=== PATIENT | female | born 1995 | race Caucasian/White ===

== ENCOUNTER 2019-04-29 09:14 | Emergency (ER) | payer OTHER, SELFPAY ==
[2019-04-29 09:17] VITALS: BP 138/70; PULSE 80; RESP 14; TEMP 36.7; O2SAT 99
--- NOTE | 2019-04-29 10:45 | ED_ITS ---
HPI - Eye Problem General Chief complaint: Eye Problems Stated complaint: Swollen left eye Time Seen by Provider: 04/29/19 10:28 Source: patient Mode of arrival: ambulatory Limitations: no limitations History of Present Illness HPI Narrative: 24-year-old female comes emergency department with complaint of swelling and pain in her left eye 1st 3, patient states on the lower lid, she has had swelling. It is uncomfortable. She has not had any fevers. She denies any pain in her eye itself she denies any vision changes. She states she does normally wear contacts, she is wearing glasses today. She has had similar symptoms in the past but states that this is a different location. Patient has no other medical issues. Denies any prior surgeries. 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 Related Data Previous Rx's Medication Instructions Recorded ofloxacin 1 drop EYE-LEFT QID #5 ml 04/29/19 Allergies Allergy/AdvReac Type Severity Reaction Status Date / Time No Known Drug Allergies Allergy Verified 04/29/19 09:27 Review of Systems Review of Systems ROS Unobtainable: All systems reviewed & are unremarkable except as noted in HPI and below Eyes Reports system reviewed and no additional complaints, except as docu, Denies change in vision, Reports eye discharge (crusties), Reports irritation, Denies loss of peripheral vision, Denies eye pain, Reports requires corrective lenses and Reports other (bump on lower eyelid) PFSH Social History Smoking Status: Never smoker Social History Smoking Status: Never smoker Exam Narrative Exam Narrative: GEN: well nourished, well appearing female, alert and oriented x 3, patient appears to be in mild distress. HEENT: Atraumatic, pupils are equal round reactive to light, extraocular movements are intact, nares are clear Visual acuity: right 20/40, left 20/50 without correction. General: no globe trauma Eyelids: normal inspection, eyelids everted for exam on left. Patient has a small papular bumps, there does not appear to be any fluctuance for point whiteness. There is some slight erythema and conjunctival injection. It is in the left lateral lower lid close to the corner. Conjunctiva/Sclera: normal inspection Corneas: normal inspection. EOM: intact, no palsy/entrapment Pupils: PERRL, normal accomadation, pupil normal Anterior Chambers: normal inspection, no hypema HEART: Regular rate and rhythm without murmur, clicks, rubs. LUNGS:Lungs clear to auscultation, no wheezes, rales, crackles, chest moves symmetrically ABD:bowel sounds normal, soft, non-tender, no guarding, rebound, rigidity, no masses noted, no hepatosplenomegaly MSCL: Non-tender, no muscle atrophy, muscles strength 5/5 upper and lower extremities, full range of motion, normal gait NEURO:CN 2-12 intact, sensation normal Initial Vital Signs Initial Vital Signs: Vital Signs Temperature 98.1 F 04/29/19 09:17 Pulse Rate 80 04/29/19 09:17 Respiratory Rate 14 04/29/19 09:17 Blood Pressure 138/70 04/29/19 09:17 Pulse Oximetry 99 04/29/19 09:17 Course Vital Signs - 8 hr 04/29/19 09:17 Temperature 98.1 F Pulse Rate 80 Respiratory Rate 14 Blood Pressure 138/70 Pulse Oximetry 99 Discharge Plan Departure Patient Disposition: Home Clinical Impression: Acute chalazion Qualifiers: Laterality: left Qualified Code(s): H00.16 - Chalazion left eye, unspecified eyelid Discharge Date/Time: 04/29/19 10:58 Interventions: ED Discharge Assessment Last Done: 04/29/19 10:57 Instructions: DI for Chalazion Activity Restrictions/Additional Instructions: Follow-up with Ophthalmology on Wednesday, call 1st thing on Wednesday morning for an appointment. Do not wear your contacts until you are cleared by Ophthalmology. Continue with cold compresses to the affected as often as you like. May continue with ibuprofen up to 600 mg every 6 hours and/or Tylenol up to a 1000 mg every 8 hours. Use antibiotic eyedrops twice daily until you see Ophthalmology. Return to the emergency department for fevers greater 100.4, rapidly increasing swelling of her eye, pain in the eyeball, vision changes, swelling of the face or other new or concerning symptoms Prescriptions: New ofloxacin 0.3 % drops 1 drop EYE-LEFT QID Qty: 5 RF: 0 Referrals: Armaan Hobson MD [Physician] -
[2019-04-29 10:57] VITALS: BP 122/71; PULSE 72; RESP 18; O2SAT 98
== END 2019-04-29 10:58 | disposition home or self-care (01) ==
PROVIDERS: Emergency Provider Emergency Medicine
DX: H00.16 Chalazion left eye, unspecified eyelid (principal)
CPT/HCPCS: 99283

== ENCOUNTER 2019-09-04 21:14 | Emergency (ER) | payer OTHER, SELFPAY ==
[2019-09-04 21:43] VITALS: BP 119/75; PULSE 87; RESP 20; TEMP 36.9; O2SAT 97
[2019-09-04 22:02] LABS: Add Manual Diff / Slide Review NO; Basophils Absolute Auto 0 /uL (0-100); Basophils Percent Auto 0.3 % (0-2); Eosinophils Absolute Auto 100 /uL (0-450); Eosinophils Percent Auto 0.8 % (2-4); Hematocrit 32.2 % (36-46); Hemoglobin 10.3 g/dL (12.0-16.0); Lymphocytes Absolute Auto 2700 /uL (1100-4500); Lymphocytes Percent Auto 31.6 % (25-40); Mean Corpuscular Hemoglobin 22.4 PG (26-34); Monocytes Absolute Auto 600 /uL (0-900); Neutrophils Absolute Auto 5100 /uL (1500-7000); Neutrophils Percent Auto 60.3 % (50-75); Platelet Count 293 X10^3/uL (150-400); Red Cell Distribution Width 16.5 % (11.6-14.8); White Blood Cell Count 8.4 X10^3/uL (4.5-11.0)
[2019-09-04] MEDS: SODIUM CHLORIDE 0.9% 1,000 ML 1000 ML IV (22:11)
[2019-09-04 22:12] LABS: Alanine Aminotransferase 11 IU/L (<35); Albumin 4.9 g/dL (3.5-5.0); Albumin Globulin Ratio 1.6 (1.0-2.8); Alkaline Phosphatase 46 U/L (38-126); Aspartate Aminotransferase 22 IU/L (14-36); BUN Creatinine Ratio 13.3 (6-22); Bilirubin Total 0.5 mg/dL (0.2-1.3); Blood Urea Nitrogen 8 mg/dL (7-17); Calcium 9.5 mg/dL (8.4-10.2); Carbon Dioxide 23 mmol/L (22-32); Chloride 103 mmol/L (98-107); Estimated Glomerular Filt Rate > 60.0 mL/min (>60); Glucose 93 mg/dL (70-100); HEMOLYSIS < 15 (0-50); Potassium 3.8 mmol/L (3.4-5.1); Sodium 137 mmol/L (137-145); Total Protein 7.9 g/dL (6.3-8.2)
[2019-09-04 22:16] LABS: Bacteria Urine None Seen; RBC Urine None Seen (0-5/HPF); WBC Urine None Seen (0-5/HPF)
[2019-09-04 22:36] LABS: Culture Indicated Urine Specimen Cultured; Squamous Epithelial Cell Urine 0-1 /HPF (0-5/HPF)
--- NOTE | 2019-09-04 22:57 | ED.NAVMDI ---
HPI - Nausea/Vomiting/Diarrhea General Chief complaint: Nausea/Vomiting/Diarrhea Stated complaint: 6 WKS VOMITING DIARRHEA Time Seen by Provider: 09/04/19 22:57 Source: patient Mode of arrival: Ambulatory Limitations: no limitations History of Present Illness HPI Narrative: This is a 24-year-old female comes to the emergency department with complaint of abdominal pain and nausea/vomiting and diarrhea for the past 4 5 days. Patient states most she has been having dry heaving. She has not been actually vomiting up food. But she has not been trying to eat or drink much. She states she has been having diarrhea about 4 times daily. There has been no black or blood. She describes her pain is sore lower abdomen. A constant sort of sharp pain. She states it does not radiate to her back. She denies any flank pain. She denies any vaginal bleeding. She has had vaginal discharge but states it is her typical vaginal discharge was no new changes. She had her 1st appointment today, she was evaluated and states they did not do a pelvic. She was scheduled for an only ultrasound but had not obtained yet. She has not any fevers or chills. No chest pain or shortness of breath. No nausea vomiting or cold cough congestive symptoms. They did all have a cold in her household about a week ago with a cough but that had resolved. She did have urinary symptoms about 5 days ago with frequency dysuria urgency but took cranberry tablets and states that her symptoms improved. Related Data Previous Rx's Medication Instructions Recorded ofloxacin 1 drop EYE-LEFT QID #5 ml 04/29/19 cephalexin [Keflex] 500 mg PO BID #10 cap 09/05/19 Allergies Allergy/AdvReac Type Severity Reaction Status Date / Time No Known Drug Allergies Allergy Verified 04/29/19 09:27 Review of Systems Review of Systems ROS Unobtainable: All systems reviewed & are unremarkable except as noted in HPI and below Patient History Social History Smoking Status: Never smoker alcohol intake frequency: 0-2 drinks per day Substance Use Type: does not use Exam Narrative Exam Narrative: GENERAL: Alert and oriented x three, well-nourished, well-appearing female in mild distress. HEENT: Head normocephalic, atraumatic, EOMI, pupils reactive, face symmetric, moist mucous membranes NECK: Supple, full range of motion CARDIOVASCULAR: Regular rate and rhythm without murmurs, rubs or gallops. RESPIRATORY: Breath sounds equal bilaterally, no wheezes rales or rhonchi. ABDOMEN: Soft, nontender to palpation. Unable to palpate uterus, appropriate for dates. Normoactive bowel sounds all 4 quadrants. No guarding or rebound, rigidity, no mass : No CVA tenderness EXTREMITIES: Normal range of motion, no clubbing or edema. Neurovascularly intact NEUROLOGICAL: Cranial nerves II through XII grossly intact. Moving all extremities SKIN: Warm, dry, no petechiae, no rashes or lesions. Initial Vital Signs Initial Vital Signs: Vital Signs Temperature 98.4 F 09/04/19 21:43 Pulse Rate 87 09/04/19 21:43 Respiratory Rate 20 09/04/19 21:43 Blood Pressure 119/75 09/04/19 21:43 Pulse Oximetry 97 09/04/19 21:43 Course Orders Ordered: ED Orders 09/04/19 21:50 Complete Blood Count AUTO DIFF Stat Comprehensive Metabolic Panel Stat 09/04/19 21:53 Lipase Stat 09/04/19 22:00 Urine Culture Stat Urine Microscopic Stat 09/04/19 23:12 US OB <= 14 weeks fetus Stat US abdomen complete Stat Discontinued Medications Acetaminophen (Tylenol) 975 mg PO NOW ONE Stop: 09/04/19 23:14 Last Admin: 09/04/19 23:28 Dose: 975 mg Documented by: MARIA ALEJANDRA Cephalexin HCl (Keflex) 500 mg PO NOW ONE Stop: 09/05/19 00:46 Last Admin: 09/05/19 00:59 Dose: 500 mg Documented by: MARIA ALEJANDRA Dicyclomine HCl (Bentyl) 20 mg PO NOW ONE Stop: 09/04/19 23:14 Last Admin: 09/04/19 23:28 Dose: 20 mg Documented by: MARIA ALEJANDRA Sodium Chloride (Normal Saline 0.9%) 1,000 mls @ 1,000 mls/hr IV BOLUS ONE Stop: 09/04/19 22:29 Last Infusion: 09/04/19 23:15 Dose: 0 mls/hr Documented by: MARIA ALEJANDRA Admin: 09/04/19 22:11 Dose: 1,000 mls/hr Documented by: MARIA AELJANDRA Ondansetron HCl (Zofran) 4 mg IV NOW ONE Stop: 09/04/19 21:30 Last Admin: 09/05/19 00:21 Dose: 4 mg Documented by: CROW Ondansetron HCl (Zofran Odt Prepack) 1 bottle MISC SEEINSTR ONE Stop: 09/05/19 00:55 Last Admin: 09/05/19 00:59 Dose: 1 bottle Documented by: MARIA ALEJANDRA Vital Signs Vital signs: Vital Signs - 8 hr 09/04/19 21:43 09/05/19 00:13 Temperature 98.4 F Pulse Rate 87 82 Respiratory Rate 20 15 Blood Pressure [Right Arm] 119/75 101/57 L Pulse Oximetry 97 99 MDM - Nausea/Vomiting/Diarrhea Lab Data Attestation: I reviewed the patient's lab results. Result diagrams: 09/04/19 21:50 09/04/19 21:50 Labs: Lab Results 09/04/19 09/04/19 09/04/19 Range/Units 21:50 21:50 21:53 WBC 8.4 (4.5-11.0) X10^3/uL RBC 4.60 (4.0-5.2) X10^6/uL Hgb 10.3 L (12.0-16.0) g/dL Hct 32.2 L (36-46) % MCV 70.0 L (80-100) fL MCH 22.4 L (26-34) PG MCHC 32.0 (30-36) % RDW 16.5 H (11.6-14.8) % Plt Count 293 (150-400) X10^3/uL Neut % (Auto) 60.3 (50-75) % Lymph % (Auto) 31.6 (25-40) % [place] % (Auto) 7.0 (3-14) % Eos % (Auto) 0.8 L (2-4) % Baso % (Auto) 0.3 (0-2) % Neut # (Auto) 5100 (4369-3500) /uL Lymph # (Auto) 2700 (8462-8867) /uL [place] # (Auto) 600 (0-900) /uL Eos # (Auto) 100 (0-450) /uL Baso # (Auto) 0 (0-100) /uL Sodium 137 (137-145) mmol/L Potassium 3.8 (3.4-5.1) mmol/L Chloride 103 (98-107) mmol/L Carbon Dioxide 23 (22-32) mmol/L BUN 8 (7-17) mg/dL Creatinine 0.60 (0.52-1.04) mg/dL Estimated GFR > 60.0 (>60) mL/min BUN/Creatinine Ratio 13.3 (6-22) Glucose 93 (70-100) mg/dL Calcium 9.5 (8.4-10.2) mg/dL Total Bilirubin 0.5 (0.2-1.3) mg/dL AST 22 (14-36) IU/L ALT 11 (<35) IU/L Alkaline Phosphatase 46 (38-126) U/L Total Protein 7.9 (6.3-8.2) g/dL Albumin 4.9 (3.5-5.0) g/dL Globulin 3.0 (1.7-4.1) g/dL Albumin/Globulin Ratio 1.6 (1.0-2.8) Lipase 97 (23-300) U/L Urine RBC (0-5/HPF) Urine WBC (0-5/HPF) Ur Squamous Epith Cells (0-5/HPF) Urine Bacteria (None) Ur Culture Indicated? 09/04/19 Range/Units 22:00 WBC (4.5-11.0) X10^3/uL RBC (4.0-5.2) X10^6/uL Hgb (12.0-16.0) g/dL Hct (36-46) % MCV (80-100) fL MCH (26-34) PG MCHC (30-36) % RDW (11.6-14.8) % Plt Count (150-400) X10^3/uL Neut % (Auto) (50-75) % Lymph % (Auto) (25-40) % [place] % (Auto) (3-14) % Eos % (Auto) (2-4) % Baso % (Auto) (0-2) % Neut # (Auto) (4233-8707) /uL Lymph # (Auto) (8126-3044) /uL [place] # (Auto) (0-900) /uL Eos # (Auto) (0-450) /uL Baso # (Auto) (0-100) /uL Sodium (137-145) mmol/L Potassium (3.4-5.1) mmol/L Chloride (98-107) mmol/L Carbon Dioxide (22-32) mmol/L BUN (7-17) mg/dL Creatinine (0.52-1.04) mg/dL Estimated GFR (>60) mL/min BUN/Creatinine Ratio (6-22) Glucose (70-100) mg/dL Calcium (8.4-10.2) mg/dL Total Bilirubin (0.2-1.3) mg/dL AST (14-36) IU/L ALT (<35) IU/L Alkaline Phosphatase (38-126) U/L Total Protein (6.3-8.2) g/dL Albumin (3.5-5.0) g/dL Globulin (1.7-4.1) g/dL Albumin/Globulin Ratio (1.0-2.8) Lipase (23-300) U/L Urine RBC None seen (0-5/HPF) Urine WBC None seen (0-5/HPF) Ur Squamous Epith Cells 0-1 /hpf (0-5/HPF) Urine Bacteria None seen (None) Ur Culture Indicated? Specimen cultured Point of Care Testing Test Results Positive Urine Dip Bedside Urine Glucose Negative Bedside Urine Bilirubin - Negative Bedside Urine Ketone - Negative Urine Specific [place] 1.030 Bedside Urine Occult Blood - Negative Bedside Urine pH 6.0 Bedside Urine Protein - Negative Bedside Urine Urobilinogen - Negative Bedside Urine Nitrite - Negative Bedside Urine Leukocytes + 70 Esterase Imaging Data US - abdomen: Radiologist's impression: Mild fatty liver noted on image 39. No acute disease noted. Ob ultrasound: Radiologist's impression: Single live intrauterine gestation 6 weeks and 4 days with heart rate of 111. No acute disease. Probable corpus luteum cyst in left ovary measuring 1.9 x 1.3 x 1.3 cm. No subchorionic bleed. Both ovaries are otherwise unremarkable. No adnexal mass or loculated fluid collections. [facility] Narrative Medical decision making narrative: Patient comes apartment complaining of abdominal pain although she does not have any pain with palpation or does not increased with palpation in any way. Patient is anemic, I do not have labs for comparison a baseline but she was not surprised by discuss this with her. She did not know her normal baseline. Electrolytes, LFTs and lipase were normal. Show some leukocyte esterase and she states that several days ago she had some UTI like symptoms. With her I would treat her with Keflex. She could potentially have a UTI or pyelo although her imaging does not show any acute changes today. Heart rate is a little slow on her ultrasound. Patient initially refused any Zofran although she was complaining of pain as well as vomiting recently. She eventually did take the Zofran but after she had Tylenol and Bentyl. Patient's symptoms were minimally improved. She was able to tolerate oral Keflex in the department. She was given Zofran prepack as well as Keflex and instructed to follow up tomorrow with her care provider. 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 You may continue tylenol as needed for pain, you may take up to a 1000 mg every 8 hours as needed. May take Zofran 1 tablet every 6 hours as needed for nausea/vomiting. Take antibiotics until gone. Return to the emergency department for fevers good 100.4 F persistent vomiting, black or bloody stools, changing or new abdominal pain, flank pain or other new or concerning symptoms. Prescriptions: New cephalexin [Keflex] 500 mg capsule 500 mg PO BID Qty: 10 RF: 0 No Action ofloxacin 0.3 % drops 1 drop EYE-LEFT QID Qty: 5 RF: 0
--- NOTE | 2019-09-04 23:12 | DI.US.S_ITS ---
PROCEDURE: US ABDOMEN COMPLETE INDICATIONS: lower abdominal pain, 6 weeks TECHNIQUE: Real-time scanning was performed of the abdominal and retroperitoneal organs, with image documentation. COMPARISON: None. FINDINGS: Liver: Liver is normal in size and homogeneous in echotexture. Gallbladder: Gallbladder appears normal Biliary ducts: Intrahepatic bile ducts are non-dilated. Extrahepatic bile duct caliber measures 3.0 mm. Normal is 6-7 mm or less in diameter, or 10 mm or less post-cholecystectomy. Pancreas: Visualized portions of the pancreas are sonographically normal. Spleen: Spleen is normal in size and homogeneous in echotexture. Kidneys: Kidneys are normal in size and echotexture. Right kidney measures 10.1 cm long; left kidney measures 12.2 cm long. No hydronephrosis or nephrolithiasis. No solid masses. Aorta: Visualized aorta is normal in caliber at less than 3 cm. Iliacs: Proximal common iliac arteries are normal in caliber at less than 2.5 cm. IVC: Intrahepatic inferior vena cava is patent. Miscellaneous: No free abdominal fluid. IMPRESSION: No acute disease, source of current symptoms is not seen. Dictated by: Jona Benson M.D. on 09/05/2019 at 10:08 Approved by: Jona Benson M.D. on 09/05/2019 at 10:09
--- NOTE | 2019-09-04 23:12 | DI.US.S_ITS ---
PROCEDURE: US OB <= 14 WEEKS FETUS INDICATIONS: abdominal pain, 6 weeks OUTSIDE/PRIOR DATING DATA: Last menstrual period (LMP): 07/23/19. LMP-based estimated date of delivery (VAIBHAV): 04/28/20. First dating scan (date and location): This study.. Estimated date of delivery (VAIBHAV) from first dating scan: 04/25/20. TECHNIQUE: Real-time scanning was performed of the fetus and maternal pelvic organs, with image documentation. Endovaginal scanning was also performed to better visualize the fetus and maternal ovaries. COMPARISON: None. FINDINGS: Embryo: Harmony-rump length 7 mm correlates with gestational age of 6 weeks 4 days and heart rate was observed at 111 beats per minute. Measurement variability in dating: +/- 4 weeks by LMP, +/- 7 days by mean sac diameter (use before 6 weeks gestation if crown-rump length not able to be measured), +/- 5 days by crown-rump length (up to 8 weeks 6 days gestation), +/- 7 days by crown-rump length (up to 13 weeks 6 days gestation). Maternal organs: Ovaries first trimester intrauterine gestation, viable, with delivery date projected to be centered on 04/25/20. Limited images through the kidneys demonstrate no hydronephrosis. IMPRESSION: First trimester gestation, intrauterine, heart rate observed, delivery date projected to be centered on 04/25/20. Dictated by: Jona Benson M.D. on 09/05/2019 at 10:09 Approved by: Jona Benson M.D. on 09/05/2019 at 10:11
[2019-09-04 23:24] LABS: Lipase 97 U/L (23-300)
[2019-09-04] MEDS: ACETAMINOPHEN 325 MG TABLET 975 MG PO (23:28)
[2019-09-04] MEDS: DICYCLOMINE 10 MG CAPSULE 20 MG PO (23:28)
[2019-09-05 00:13] VITALS: BP 101/57; PULSE 82; RESP 15; O2SAT 99
[2019-09-05] MEDS: ONDANSETRON 4 MG/2 ML INJ IV (00:21)
[2019-09-05] MEDS: cephALEXin 250 MG CAPSULE 500 MG PO (00:59)
[2019-09-05] MEDS: ONDANSETRON 4 MG ODT PREPACK 1 BOTTLE MISC (00:59)
== END 2019-09-05 01:01 | disposition home or self-care (01) ==
PROVIDERS: Emergency Provider Emergency Medicine
DX: O26.891 Other specified pregnancy related conditions, first trimester (principal); R10.9 Unspecified abdominal pain; R11.2 Nausea with vomiting, unspecified; R19.7 Diarrhea, unspecified; Z3A.01 Less than 8 weeks gestation of pregnancy
CPT/HCPCS: 36415; 76700; 76801; 80053; 81003; 81015; 81025; 83690; 85025; 87086; 96361; 96374; 99283; 99284; J2405

== ENCOUNTER → 2019-12-12 13:27 | Outpatient (CLI) | payer OTHER, SELFPAY ==
--- NOTE | 2019-12-12 13:31 | DI.US.S_ITS ---
PROCEDURE: US OB >= 14 WEEKS FETUS INDICATIONS: ANATOMY SCAN OUTSIDE/PRIOR DATING DATA: Last menstrual period (LMP): 07/23/19. LMP-based estimated date of delivery (VAIBHAV): 04/28/20. First dating scan (date and location): 09/04/19. Estimated date of delivery (VAIBHAV) from first dating scan: 04/25/20. TECHNIQUE: Real-time scanning was performed of the fetus, with image documentation and biometric measurements. Endovaginal scanning: Not performed COMPARISON: None. FINDINGS: General: A single living intrauterine gestation is present. Presentation: Breech. Placenta: Placental position is posterior, without previa. Amniotic fluid index: 14.5 cm, normal range is 5-24 cm. heart rate: 160 beats per minute. Maternal cervical canal: 4.0 cm long. Normal lower limit is 2.5 cm. biometrics: Biparietal diameter: 4.7 cm, 20 weeks one day Head circumference: 17.9 cm, 20 weeks 2 days Abdominal circumference: 15.9 cm, 21 weeks zero days Femur length: 3.3 cm, 20 weeks one day Estimated gestational age from initial scan: 20 weeks 5 days Composite gestational age from present scan: 20 weeks 3 days Estimated weight and percentile: 365 g, 39th percentile Measurement variability for biometric dating: +/- 7 days from 14 weeks to 15 weeks 6 days gestation, +/- 10 days from 16 weeks to 21 weeks 6 days gestation, +/- 2 weeks from 22 weeks to 27 weeks 6 days gestation, +/- 3 weeks for 28 weeks gestation or later. weight reference: 4500 g or EFW >90/95% is considered macrosomia or large for gestational age. EFW <10% is small for gestational age. EFW 5% or less is considered intra-uterine growth restriction. Anatomic survey: Neuro: Ventricles are non-dilated at less than 10 mm. Cisterna magna is normal at 3-11 mm. Cerebellum is normal in size and morphology. Nuchal skin fold: Normal at less than 6 mm between 14-21 weeks gestational age. Face: Nose and lips, facial profile are normal. Spine: No evidence for spina bifida. Heart: 4-chambered heart is present, with normal ventricular outflow tracts. Diaphragm: Diaphragm is intact. Stomach: Left-sided stomach is present. Kidneys: No hydronephrosis. Normal is less than 5 mm in 2nd trimester, less than 7 mm in 3rd trimester. Cord: 3-vessel cord has orthotopic insertion. Bladder: Normal in size. Extremities: All 4 extremities identified. IMPRESSION: Single living intrauterine fetus in breech presentation. Normal anatomic survey Expected interval growth Dictated by: Tomas Thakur M.D. on 12/12/2019 at 18:24 Approved by: Tomas Thakur M.D. on 12/12/2019 at 18:27
== END ==
PROVIDERS: Referring Provider Registered Nurse; Visit Provider Registered Nurse
DX: Z36.89 Encounter for other specified antenatal screening (principal); Z3A.20 20 weeks gestation of pregnancy
CPT/HCPCS: 76811

== ENCOUNTER → 2020-04-01 09:12 | Outpatient (CLI) | payer OTHER, SELFPAY ==
--- NOTE | 2020-04-01 | DI.US.S_ITS ---
PROCEDURE: US OB FOLLOW UP INDICATIONS: POSITION OUTSIDE/PRIOR DATING DATA: Last menstrual period (LMP): 07/23/19. LMP-based estimated date of delivery (VAIBHAV): 04/28/20. First dating scan (date and location): This study.. Estimated date of delivery (VAIBHAV) from first dating scan: 04/25/20. TECHNIQUE: Real-time scanning was performed of the fetus, with image documentation and biometric measurements. Endovaginal scanning: No COMPARISON: None. FINDINGS: General: A single living intrauterine gestation is present. Presentation: Vertex. Placenta: Placental position is posterior fundal, without previa. Amniotic fluid index: 13.9 cm, normal range is 5-24 cm. heart rate: 145 beats per minute. Maternal cervical canal: Not well-visualized. biometrics: Biparietal diameter: 36 weeks 2 days Head circumference: 35 weeks 5 days Abdominal circumference: 37 weeks Femur length: 35 weeks 5 days Estimated gestational age from initial scan: 36 weeks 4 days Composite gestational age from present scan: 36 weeks 1 day Estimated weight and percentile: 29 portogram; 51st percentile Measurement variability for biometric dating: +/- 7 days from 14 weeks to 15 weeks 6 days gestation, +/- 10 days from 16 weeks to 21 weeks 6 days gestation, +/- 2 weeks from 22 weeks to 27 weeks 6 days gestation, +/- 3 weeks for 28 weeks gestation or later. weight reference: 4500 g or EFW >90/95% is considered macrosomia or large for gestational age. EFW <10% is small for gestational age. EFW 5% or less is considered intra-uterine growth restriction. Other: Not applicable. IMPRESSION: 1. Single living IUP redemonstrated and interval growth is normal with estimated weight 51st percentile. Dictated by: Galdino Mustafa [facility] Interpreted: Edilberto Salazar MD on 04/01/2020 at 9:51 Approved by: Edilberto Salazar M.D. on 04/02/2020 at 13:07
== END ==
PROVIDERS: Referring Provider Midwife; Visit Provider Midwife
DX: Z36.2 Encounter for other antenatal screening follow-up (principal); Z3A.36 36 weeks gestation of pregnancy
CPT/HCPCS: 76816